=== PATIENT | male | born 1995 ===

== ENCOUNTER 2019-05-16 00:07 | Emergency (ER) | payer SELFPAY ==
[2019-05-16] MEDS ORDERED: Ketorolac Tromethamine 30 MG/ML VIAL ONE (00:32)
[2019-05-16 00:43] LABS: Bilirubin Negative (Negative); Blood, Urine Negative (Negative); Clarity Clear (Clear); Glucose, Urine (Dipstick) Normal (Negative); Leukocyte Negative Leu/uL (Negative); Nitrite Negative (Negative); Protein, Urine (Dipstick) Negative (Neg-Trace); Urobilinogen Normal mg/dL (Less than 2)
[2019-05-16 01:02] LABS: Anion Gap 13 mmol/L (10-20); BUN (Urea Nitrogen) 13 mg/dL (8.9-20.6); Calc. Creatinine Clearance 0 mL/min (70-130); Calcium 9.8 mg/dL (7.8-10.44); Carbon Dioxide 25 mmol/L (22-29); Chloride 105 mmol/L (98-107); Estimated GFR-MDRD Greater than 90; Glucose 87 mg/dL (70-105); Potassium 3.8 mmol/L (3.5-5.1); Sodium 139 mmol/L (136-145)
--- NOTE | 2019-05-16 08:14 | ULT ---
PRELIMINARY REPORT/[facility]/EMERGENCY AFTER HOURS PROCEDURE: EXAM: US Retroperitoneal Complete. EXAM DATE/TIME: 05/16/2019 1:08 AM CLINICAL HISTORY: 23 years old, male; Pain; Other: RT flank TECHNIQUE: Imaging protocol: Real-time ultrasound of the retroperitoneum with image documentation. Complete exam . COMPARISON: No relevant prior studies available. FINDINGS: Right kidney: No stones. No hydronephrosis. Left kidney: No stones. No hydronephrosis. Bladder: Normal bladder. Bilateral ureteral jets present. IMPRESSION: No acute findings. Thank you for allowing us to participate in the care of your patient. Dictated and Authenticated by: Beck Torres MD 05/16/2019 1:43 AM Central Time ([place] & [place]) FINAL REPORT BILATERAL RENAL ULTRASOUND COMPLETE EMERGENCY AFTER HOURS EXAM: Date: 05/16/19 Time: 0129 hours FINDINGS/IMPRESSION: No renal hydronephrosis. Unremarkable bladder. No acute process. Report in agreement with preliminary report given on-call by [place]. POS: [facility]
== END 2019-05-16 02:34 | disposition home or self-care (01) ==
LOC: ERS 00:07
DX: R10.9 Unspecified abdominal pain (principal); F17.210 Nicotine dependence, cigarettes, uncomplicated; Z79.899 Other long term (current) drug therapy
CPT/HCPCS: 36415; 76770; 80048; 81003; 96372; 99284; J1885